=== PATIENT | female | born 1985 | race Caucasian/White ===

== ENCOUNTER 2016-10-27 00:50 | Emergency (ER) | payer SELFPAY ==
[~2016-10-27 00:50] MED LIST: ALPARAZOLAM0.5 MG PO; AMOXICILLIN 50500 MG PO; ANTIBIOTIC; CITALOPRAM40 MG PO; CLINDAMYCIN300 MG PO; CLONAZEPAM0.5 M1 PO; FLAGYL500 M1 PO; LATUDA40 MG PO; MELATIN 3 MG-11 TAB PO; MOTRIN 800800 MG/TAB PO; NORCO 325 MG-51 TA1 PO; NORCO 325 MG-51 TAB PO; PEN-VK500 MG PO; PERCOCET 325 MG1 TAB PO; TEGRETOL 1100 MG/TAB PO; ULTRAM 50MG TAB50 MG PO; VIBRAMYCIN100 MG PO
[2016-10-27] MEDS ORDERED: MELATONIN3 MG PO (00:59)
[2016-10-27 04:28] VITALS: BP 110/70
[2017-03-31] MEDS ORDERED: MORGIDOX 1X100100 MG PO (17:18)
== END 2016-10-27 04:32 | disposition home or self-care (01) ==
LOC: ED 00:50
DX: N83.201 Unspecified ovarian cyst, right side (principal); R10.9 Unspecified abdominal pain; F10.129 Alcohol abuse with intoxication, unspecified; F12.10 Cannabis abuse, uncomplicated
CPT/HCPCS: J2300; J2405; Q9967

== ENCOUNTER 2017-02-16 01:33 | Emergency (ER) | payer SELFPAY ==
[~2017-02-16] VITALS: Ht 160 cm; Wt 54.1 kg
[~2017-02-16 01:33] MED LIST changes: +MELATONIN3 MG PO
[2017-02-16] MEDS ORDERED: ULTRAM50 M1 PO (02:44)
[2017-02-16 03:03] VITALS: BP 124/59
[2017-03-31] MEDS ORDERED: MORGIDOX 1X100100 MG PO (17:18)
== END 2017-02-16 03:03 | disposition home or self-care (01) ==
LOC: ED 01:33
DX: K08.89 Other specified disorders of teeth and supporting structures (principal); R45.1 Restlessness and agitation
CPT/HCPCS: J1885

== ENCOUNTER 2017-03-26 17:45 | Emergency (ER) | payer SELFPAY ==
[~2017-03-26] VITALS: Ht 160 cm; Wt 54.5 kg
[~2017-03-26 17:45] MED LIST changes: +ULTRAM50 M1 PO
[2017-03-26] MEDS ORDERED: CIPRO500 M1 PO (20:07)
[2017-03-26] MEDS ORDERED: NORCO 325 MG-51 TAB PO (20:26)
[2017-03-26 21:47] VITALS: BP 129/85
[2017-03-31] MEDS ORDERED: MORGIDOX 1X100100 MG PO (17:18)
== END 2017-03-26 21:47 | disposition home or self-care (01) ==
LOC: ED 17:45
DX: N10 Acute pyelonephritis (principal); F41.9 Anxiety disorder, unspecified
CPT/HCPCS: J0595; J1885; J1956

== ENCOUNTER 2017-09-04 00:39 | Emergency (ER) | payer SELFPAY ==
[~2017-09-04] VITALS: Ht 160 cm; Wt 59.1 kg
[~2017-09-04 00:39] MED LIST changes: +CIPRO500 M1 PO; +MORGIDOX 1X100100 MG PO
[2017-09-04] MEDS ORDERED: PREDNISONE20 M1 PO (01:39)
[2017-09-04] MEDS ORDERED: PROAIR HFA0.09 MG/AC IH (01:39)
[2017-09-04] MEDS ORDERED: AMOXICILLIN 50500 MG PO (01:39)
[2017-09-04] MEDS ORDERED: GUAIFEN-CODEIN118 ML PO (01:39)
[2017-09-04 02:14] VITALS: BP 116/62
== END 2017-09-04 02:14 | disposition home or self-care (01) ==
LOC: ED 00:39
DX: J45.909 Unspecified asthma, uncomplicated (principal); K08.89 Other specified disorders of teeth and supporting structures; F41.9 Anxiety disorder, unspecified; F31.9 Bipolar disorder, unspecified; F20.9 Schizophrenia, unspecified